=== PATIENT | female | born 1965 | race Caucasian/White ===

== ENCOUNTER → 2016-11-05 | Outpatient (CLI) | payer BC ==
[~2016-11-05] MED LIST: ALBUTEROL17 GM INH; ATIVAN PO; AZMACORT20 GM INH; BIOTIN5000 MCG PO; BUSPAR30 MG PO; CELEXA PO; CERTAGEN PO; EFFEXOR PO; FISH OIL 1,2001 CAP PO; FLOMAX0.4 M1 PO; FLONASE 0.05% N16 GM; FLONASE16 GM; FOLIC ACID PO; KLONOPIN1 M1 PO; OYSTER CALCIUM500 MG PO; PERCOCET 5-3251 TAB PO; PHENERGAN25 MG PO; QVAR8.7 G1 INH; SINGULAIR PO; VITAMIN D31000 UNI1 PO; VOLTAREN75 MG PO; ZYRTEC PO
--- NOTE | ~2016-11-05 | US98 ---
[facility] A Service of [facility] & [facility] RADIOLOGY TEXT RESULTS PATIENT: DIEGO BARTH LOCATION: [facility] : 67 UNIT #: [id number] AGE: [address]: AURELIO GUARDADO APRN SEX: F ORDER DR: [id number] [facility] [address]. [place], [place] [address] [id number] O MR#: [id number] Acc #: [id number] NAME: DIEGO BARTH : 1965 SEX: F STUDY DATE/TIME: 11/05/2016 10:02 UNIT: [facility] ROOM: STUDY DESCRIPTION: US Pelvic Non-OB Complete Attending Physician: Aurelio Guardado Aprn Referring Physician: Aurelio Guardado Aprn Ordering Physician: Physician Non-Staff Primary Care Physician: Philippe Mora M.D. MEDICAL IMAGING REPORT This report is preliminary unless electronic signature is present EXAM Transabdominal and transvaginal pelvic ultrasound, 11/05/2016 HISTORY Irregular intermenstrual bleeding. Increased frequency of menses over the past several months. FINDINGS Transabdominal and transvaginal pelvic ultrasound was performed. Endovaginal ultrasound was performed for attempted better visualization of the adnexal structures. The bladder is normal in appearance. The uterus measures 9.8 cm craniocaudal by 5.4 cm AP by 4.2 cm transverse. There is a 1-cm fibroid along the anterior aspect of the uterine fundus. Intrauterine contraceptive device is noted along the upper aspect of the endometrial canal. The artifact from the IUD somewhat obscures the endometrial stripe and an accurate measurement of the endometrial stripe is not possible. The left ovary measures 1.1 cm x 2.1 cm x 1 cm and contains a prominent 1.1 cm simple follicle. The right ovary was not visualized on either transabdominal or transvaginal portions of the examination. No adnexal mass was seen. Trace free fluid was seen in the pelvis. IMPRESSION 1. Small fibroid along the anterior aspect of the uterine fundus. 2. Intrauterine contraceptive device seen along the upper aspect of the endometrial canal. Artifact from the IUD somewhat obscures evaluation of the endometrial stripe and an accurate measurement of the stripe is not possible. 3. Trace amount of free fluid in the pelvis. 4. Normal left ovary. The right ovary was not visualized on either transabdominal or transvaginal portions of the examination. No adnexal mass was seen. [facility] A Service of [facility] RADIOLOGY TEXT RESULTS PATIENT: DIEGO BARTH LOCATION: [facility] : 67 UNIT #: [id number] AGE: [address]: AURELIO GUARDADO APRN SEX: F ORDER DR: Dictated by... Ford Romero M.D. THIS IS AN ELECTRONICALLY VERIFIED REPORT Ford Romero M.D. at 11/06/2016 7:14 AM [facility]/jose TD: 11/06/2016 00:28 JOB #: [id number] MEDICAL IMAGING REPORT Page 1 of 1 COPY
--- NOTE | ~2016-11-05 | MY29 ---
[facility] A Service of [facility] RADIOLOGY TEXT RESULTS PATIENT: DIEGO BARTH LOCATION: [facility] : 67 UNIT #: [id number] AGE: [address]: AURELIO GUARDADO APRN SEX: F ORDER DR: [id number] [place] [id number] [facility] [place], [place] [address] [id number] O MR#: [id number] Acc #: [id number] NAME: DIEGO BARTH : 1965 SEX: F STUDY DATE/TIME: 11/05/2016 9:06 UNIT: [facility] ROOM: STUDY DESCRIPTION: MY CLOTILDE SCREENING W/ CAD BILAT Attending Physician: Aurelio Guardado Aprn Referring Physician: Aurelio Guardado Aprn Ordering Physician: Physician Non-Staff Primary Care Physician: Philippe Mora M.D. MEDICAL IMAGING REPORT This report is preliminary unless electronic signature is present EXAM Bilateral digital screening mammogram with CAD DATE 11/05/2016 HISTORY Family history of breast cancer in maternal great-grandmother. No personal history of breast cancer or current complaints. COMPARISON Bilateral screening mammogram performed at [facility] 09/27/2011. FINDINGS CC and MLO views were obtained of each breast utilizing digital technique and reviewed with an FDA-approved CAD device. Scattered fibroglandular densities are present bilaterally. An oval, circumscribed 1-cm nodule in the subareolar left breast superiorly, depicted on the MLO view, is unchanged from 2012, in keeping with benign finding such as a cyst or benign ductal ectasia. Previously described nodular density in the 6 o'clock right breast is no longer evident on this examination. No architectural distortion or suspicious clustered microcalcification is seen. No new nodules are identified. IMPRESSION 1. BIRADS category 2. Benign findings. Routine bilateral screening mammogram is recommended in one year. Patients over the age of 40 are entered into a reminder system with target due date for the next mammogram. A result letter will also be sent to the patient. [facility] A Service [facility] RADIOLOGY TEXT RESULTS PATIENT: DIEGO BARTH LOCATION: [facility] : 67 UNIT #: [id number] AGE: [address]: AURELIO GUARDADO APRN SEX: F ORDER DR: MAGGIEADS: 2 Benign Finding Dictated by... Amanda Soto M.D. THIS IS AN ELECTRONICALLY VERIFIED REPORT Amanda Soto M.D. at 11/06/2016 8:31 AM [facility]/jose TD: 11/06/2016 02:44 JOB #: [id number] MEDICAL IMAGING REPORT Page 1 of 1 COPY
== END | disposition home or self-care (01) ==
LOC: CWCC 08:33
DX: Z12.31 Encounter for screening mammogram for malignant neoplasm of breast (principal); Z80.3 Family history of malignant neoplasm of breast; N92.6 Irregular menstruation, unspecified; D25.9 Leiomyoma of uterus, unspecified; Z97.5 Presence of (intrauterine) contraceptive device
CPT/HCPCS: 76830; 76856; G0202

== ENCOUNTER → 2016-11-05 | Outpatient (CLI) | payer BC ==
--- NOTE | ~2016-11-05 | US6 ---
[facility] A Service of [facility] & [facility] RADIOLOGY TEXT RESULTS PATIENT: DIEGO BARTH LOCATION: [facility] : 67 UNIT #: [id number] AGE: [address]: Philippe Mora MD SEX: F ORDER DR: [id number] [facility] [address] [facility]. [place], [place] [address] [id number] O MR#: [id number] Acc #: [id number] NAME: DIEGO BARTH : 1965 SEX: F STUDY DATE/TIME: 11/05/2016 9:13 UNIT: [facility] ROOM: STUDY DESCRIPTION: US Abdominal Limited Attending Physician: Philippe Mora M.D. Referring Physician: Nick Snyder M.D. Ordering Physician: Philippe Mora M.D. Primary Care Physician: Philippe Mora M.D. MEDICAL IMAGING REPORT This report is preliminary unless electronic signature is present EXAM Right upper quadrant ultrasound 11/05/2016 HISTORY Abnormally elevated liver enzymes on lab work performed at 3 weeks ago. FINDINGS The liver demonstrates an increase in echotexture with attenuation of the ultrasound beam characteristic of fatty infiltration. No cystic or solid mass lesions were seen in the liver. The intra- and extrahepatic bile ducts are not dilated. The gallbladder is normal with no evidence of cholelithiasis, wall thickening or pericholecystic fluid. The common duct measures 6 mm. The pancreas and right kidney are normal. IMPRESSION Fatty infiltration of the liver. Otherwise, negative right upper quadrant ultrasound. Dictated by... Ford Romero M.D. THIS IS AN ELECTRONICALLY VERIFIED REPORT Ford Romero M.D. at 11/06/2016 7:14 AM [facility]/holly TD: 11/05/2016 22:09 JOB #: [id number] MEDICAL IMAGING REPORT Page 1 of 1 COPY
== END | disposition home or self-care (01) ==
LOC: CWCC 08:30
DX: R94.5 Abnormal results of liver function studies (principal); K76.0 Fatty (change of) liver, not elsewhere classified
CPT/HCPCS: 76705